=== PATIENT | male | born 1995 | race Caucasian/White ===

== ENCOUNTER 2016-10-05 16:02 | Emergency (ER) | payer OTHER ==
--- NOTE | 2016-10-05 16:42 | DIAGNOSTIC IMAGING REPORT ---
PROCEDURE: XR TOE - LEFT (fifth toe). INDICATION: TRAUMA/INJURY TECHNIQUE: Three views. COMPARISON: None. FINDINGS: There is moderate soft tissue swelling of the left fifth toe. There is a 2 mm intra-articular osseous density of the medial base of the distal phalanx, left fifth toe, which may be developmental or could represent a fracture (acute versus old). The rest the osseous structures and joint spaces are normal. 1. Moderate soft tissue swelling of the left fifth toe. 2. The 2 mm osseous density at the base of the distal phalanx, left fifth toe, which could be developmental, although might also represent a fracture (acute versus old). 3. Findings discussed with PAC. Joe.
--- NOTE | 2016-10-05 16:43 | ED NURSING NOTES ---
Clinical Report - Nurses [facility] [address] [place] [place] [address] 10/05/2016 16:02 Patient: MELYSSA PAUL TRIAGE Triage time 16:07. Acuity: LEVEL 5. Chief Complaint: INJURY TO THE LEFT FIFTH TOE. Alert. No acute distress. BETH COMA SCORE: Beth Coma Scale: 15- eyes open spontaneously (4); best verbal response- oriented x 4 (5); best motor response- obeys commands (6). --16:11 Lashae Granger R.N. 16:07 10/05/16. BP: 129/72. HR: 79. RR: 18. O2 saturation: 100% on room air. Temp: 98.3 F (oral). Pain level now: 07/19. --16:11 Lashae Granger R.N. Weight: 75.2 kg stated. Height/Length: 72 inches Per Patient. BMI: 22.5. --16:09 Lashae Granger R.N. Medications None. --16:08 Lashae Granger R.N. Medication/allergy information source: the patient. --16:11 Lashae Granger R.N. Allergies No Known Drug Allergy. --16:08 Lashae Granger R.N. History Arrived by private vehicle. Historian: patient. Unaccompanied. Primary physician (Marie). This occurred yesterday. Mechanism of injury: a single blow (stubbed it). SOCIAL HX: Former smoker (only one or two). No alcohol use or drug use. FALL RISK ASSESSMENT: Fall risk assessment completed. No fall risk identified. FUNCTIONAL ASSESSMENT: Functional assessment: no impairments noted. LEARNING NEEDS ASSESSMENT: The learning needs assessment revealed no barriers. --16:11 Lashae Granger R.N. PROBLEMS: Fractured Phalanx (Finger). Right ankle injury. Tetanus Status. Immunizations. --16:08 Lashae Granger R.N. ADDITIONAL SURGERIES: B/l ears. Right ankle. --16:08 Lashae Granger R.N. Assessment GENERAL / NEURO / PSYCH: Alert. Oriented X 4. Appears in no acute distress. Patient appears calm and cooperative. RESPIRATORY: Respirations not labored. SKIN: Skin is warm and dry. --16:11 Lashae Granger R.N. Interventions ID band on patient. To treatment room. --16:11 Lashae Granger R.N. PHYSICAL ASSESSMENT 16:17 10/05/16. Ambulatory to room. GENERAL / NEURO / PSYCH: Oriented X 4. Alert. Appears in no acute distress. EXTREMITIES: Pain with weight bearing. ( left little toe red, swollen). SKIN: Skin is warm and dry. --16:17 Lashae Granger R.N. NURSING PROGRESS NOTES 16:17 10/05/16. Call light placed in reach. Side rails up x 1. Bed placed in lowest position. Brakes of bed on. --16:17 Lashae Granger R.N. 16:57 10/05/16. Reassessment after splinting. He is calm. Overall patient status is the same- he states feels the same. GENERAL / NEURO / PSYCH: Alert. Oriented X 4. RESPIRATORY: No respiratory distress. SKIN: Skin is warm and dry. --16:57 Lashae Granger R.N. left little toe melony taped to 4th toe and ortho shoe applied by EDT. --17:00 Lashae Granger R.N. DISPOSITION / DISCHARGE Departure time: 1655. Condition at departure: improved and stable. No learning barriers present. Reviewed medication(s). He has no activity restrictions. Patient verbalized understanding. Written instructions provided in Frisian. The patient was discharged home and unaccompanied at time of discharge. He left the Emergency Department ambulatory and via private vehicle. FALL RISK ASSESSMENT: Fall risk assessment completed. No fall risk identified. --16:58 Lashae Granger R.N. 16:55 10/05/16. Pain level now: 2/10. Additional comments: VSS here under an hour. --16:58 Lashae Granger R.N. Locked/Released at 10/05/2016 17:01 by Lashae Granger R.N.
--- NOTE | 2016-10-05 16:43 | ED CLINICAL REPORT ---
Clinical Report - Physicians/Mid Levels [facility] [address] [place] [address] 10/05/2016 16:02 [id number] Time Seen: 16:17 Oct 05 2016. Arrived- By private vehicle. HISTORY OF PRESENT ILLNESS Chief Complaint: Injury to toe. The injury happened yesterday. The patient sustained a direct blow and moderate crush injury. Occurred at home. Patient is experiencing mild pain. Patient denies injury to the head. (patient struck a gait with his left toe yesterday. Patient has been having swelling and pain since then. Denies any bleeding. denies prior injury to the area. Pain worsens with movement or ambulation. Patient has been icing the area). REVIEW OF SYSTEMS The patient complains of pain on weight bearing. No skin laceration. All systems otherwise negative, except as recorded above. PAST HISTORY See nurses notes. The patient has not had a prior injury to the same area. Problems: Fractured Phalanx (Finger). Right ankle injury. Tetanus Status. Immunizations. Additional Surgeries: B/l ears. Right ankle. Medications: None. Allergies: No Known Drug Allergy. SOCIAL HISTORY Former smoker. No alcohol use. ADDITIONAL NOTES The nursing notes have been reviewed. PHYSICAL EXAM Vital Signs: 10/05/2016 16:07 BP: 129/72. HR: 79. RR: 18. O2 saturation: 100%. Temp: 98.3 F. Pain level now: 4/10. Appearance: Alert. No acute distress. Head: Head atraumatic. CVS: Normal heart rate and rhythm. Heart sounds normal. Respiratory: No respiratory distress. Breath sounds normal. Skin: Skin intact. Skin warm. Extremities: Left fifth toe: tenderness and swelling. No ankle injury. Neuro, Vascular and Tendons: Vascular status intact. Motor intact. Gait: Limping gait. Neuro: Oriented X 3. No motor deficit. LABS, X-RAYS, AND EKG Lt Toes X-ray: (Moderate soft tissue swelling of the left fifth toe. 2. The 2 mm osseous density at the base of the distal phalanx, left fifth toe, which could be developmental, although might also represent a fracture (acute versus old). 3. Findings discussed with PAC. Joe. Electronically Final signed by:Brandon Whipple MD 10/05/2016 4:37:34 PM). PROGRESS AND PROCEDURES PROCEDURES (melony tape 5th left digit). Course of Care: patient with possible distal fifth digit injury, may be new, given the amount of swelling. No signs of open fracture. No signs of injury to the nail. Patient very stable. To follow up outpatient. Splinted and postop shoe here in the emergency room. Patient is stable. Physical exam findings are improved. Symptoms better. Patient/family counseled. Disposition: Discharged. Condition: good. CLINICAL IMPRESSION Closed distal phalanx fracture of the left 5th toe. INSTRUCTIONS Apply ice. Elevate affected areas above chest level. You may walk and bear weight as tolerated. OTC Medications: Take OTC medications according to label instructions. Available over the counter. Acetaminophen (available over the counter): take according to label instructions. Motrin (available over the counter): take according to label instructions. Follow-up with: Antoni Adrian DPM, Podiatry, , [facility], [address] [place] [address], [address], [place] [address] Follow up. Call for the next available appointment. (Electronically signed by Kellen Castrejon P.A.-C 10/05/2016 17:00)
--- NOTE | 2016-10-05 16:43 | ED ORDER SUMMARY ---
..... Patient: MELYSSA PAUL OrderSheet [facility] VisitID: [id number] [place] [address] 21y, M Registration Date/Time: 10/05/2016 ORDER SHEET Weight: 75.2 kg (stated) Allergies: No Known Drug Allergy GENERAL ORDERS: Toe Left Urgent (16:14 10/05/2016 Ritu Carr) (Ack 16:19 LNations ER Tech1) (16:25 LNations ER Tech1) Adan Tape Toes (16:43 10/05/2016 Ritu Carr) (17:01 Merlyn Llamas) MEDICATION ORDERS: IV FLUIDS: ORDER SHEET NOTES: [Electronically signed by Kellen Castrejon P.A.-C (17:00 10/05/2016)] [Electronically signed by Lashae Granger R.N. (17:10/05/2016)] [Electronically locked/signed by Lashae Granger R.N. (17:10/05/2016)]
--- NOTE | 2016-10-05 16:43 | ED CLINICAL REPORT ---
Clinical Report - Physicians/Mid Levels [facility] [address] [place] [address] 10/05/2016 16:02 [id number] Time Seen: 16:17 Oct 05 2016. Arrived- By private vehicle. HISTORY OF PRESENT ILLNESS Chief Complaint: Injury to toe. The injury happened yesterday. The patient sustained a direct blow and moderate crush injury. Occurred at home. Patient is experiencing mild pain. Patient denies injury to the head. (patient struck a gait with his left toe yesterday. Patient has been having swelling and pain since then. Denies any bleeding. denies prior injury to the area. Pain worsens with movement or ambulation. Patient has been icing the area). REVIEW OF SYSTEMS The patient complains of pain on weight bearing. No skin laceration. All systems otherwise negative, except as recorded above. PAST HISTORY See nurses notes. The patient has not had a prior injury to the same area. Problems: Fractured Phalanx (Finger). Right ankle injury. Tetanus Status. Immunizations. Additional Surgeries: B/l ears. Right ankle. Medications: None. Allergies: No Known Drug Allergy. SOCIAL HISTORY Former smoker. No alcohol use. ADDITIONAL NOTES The nursing notes have been reviewed. PHYSICAL EXAM Vital Signs: 10/05/2016 16:07 BP: 129/72. HR: 79. RR: 18. O2 saturation: 100%. Temp: 98.3 F. Pain level now: 4/10. Appearance: Alert. No acute distress. Head: Head atraumatic. CVS: Normal heart rate and rhythm. Heart sounds normal. Respiratory: No respiratory distress. Breath sounds normal. Skin: Skin intact. Skin warm. Extremities: Left fifth toe: tenderness and swelling. No ankle injury. Neuro, Vascular and Tendons: Vascular status intact. Motor intact. Gait: Limping gait. Neuro: Oriented X 3. No motor deficit. LABS, X-RAYS, AND EKG Lt Toes X-ray: (Moderate soft tissue swelling of the left fifth toe. 2. The 2 mm osseous density at the base of the distal phalanx, left fifth toe, which could be developmental, although might also represent a fracture (acute versus old). 3. Findings discussed with PAC. Joe. Electronically Final signed by:Brandon Whipple MD 10/05/2016 4:37:34 PM). PROGRESS AND PROCEDURES PROCEDURES (melony tape 5th left digit). Course of Care: patient with possible distal fifth digit injury, may be new, given the amount of swelling. No signs of open fracture. No signs of injury to the nail. Patient very stable. To follow up outpatient. Splinted and postop shoe here in the emergency room. Patient is stable. Physical exam findings are improved. Symptoms better. Patient/family counseled. Disposition: Discharged. Condition: good. CLINICAL IMPRESSION Closed distal phalanx fracture of the left 5th toe. INSTRUCTIONS Apply ice. Elevate affected areas above chest level. You may walk and bear weight as tolerated. OTC Medications: Take OTC medications according to label instructions. Available over the counter. Acetaminophen (available over the counter): take according to label instructions. Motrin (available over the counter): take according to label instructions. Follow-up with: Antoni Adrian DPM, Podiatry, , [facility], [address] [place] [address], [address], [place] [address] Follow up. Call for the next available appointment. (Electronically signed by Kellen Castrejon P.A.-C 10/05/2016 17:00)
--- NOTE | 2016-10-05 16:43 | ED ORDER SUMMARY ---
..... Patient: MELYSSA PAUL OrderSheet [facility] VisitID: [id number] [place] [address] 21y, M Registration Date/Time: 10/05/2016 ORDER SHEET Weight: 75.2 kg (stated) Allergies: No Known Drug Allergy GENERAL ORDERS: Toe Left Urgent (16:14 10/05/2016 Ritu Carr) (Ack 16:19 LNations ER Tech1) (16:25 LNations ER Tech1) Adan Tape Toes (16:43 10/05/2016 Ritu Carr) (17:01 Merlyn Llamas) MEDICATION ORDERS: IV FLUIDS: ORDER SHEET NOTES: [Electronically signed by Kellen Castrejon P.A.-C (17:00 10/05/2016)] [Electronically signed by Lashae Granger R.N. (17:10/05/2016)] [Electronically locked/signed by Lsahae Granger R.N. (17:10/05/2016)]
--- NOTE | 2016-10-05 17:02 | ED DISCHARGE INSTRUCTIONS ---
Patient: MELYSSA PAUL General Instructions [facility] VisitID: [id number] [place] [address] 21y, M Registration Date/Time: 10/05/2016 Closed distal phalanx fracture of the left 5th toe. INSTRUCTIONS Apply ice. Elevate affected areas above chest level. You may walk and bear weight as tolerated. OTC Medications: Take OTC medications according to label instructions. Available over the counter. Acetaminophen (available over the counter): take according to label instructions. Motrin (available over the counter): take according to label instructions. Follow-up with: Antoni Adrian DPM, Podiatry, , [facility], [address] [place] [address], [address] [address] Follow up. Call for the next available appointment. ADDITIONAL INFORMATION Fracture:Toe [Closed] You have a fracture of your toe (broken toe). This causes local pain, swelling and bruising. This injury takes about four weeks to heal. Toe injuries are often treated by taping the injured toe to the next one ("melony taping"). This protects the injured toe and holds it in position. If the TOENAIL has been severely injured, it may fall off in 1-2 weeks. It takes up to 12 months for a new toenail to grow back. Home Care: 1) You may be given a cast shoe to wear to prevent movement in your toe. If not, you can use a sandal or any shoe that does not put pressure on the injured toe until the swelling and pain go away. If using a sandal, be careful not to strike your foot against anything, since another injury could make the fracture worse. If you were given crutches, do not put full weight on the injured foot until you can do so without pain. 2) Keep your foot elevated to reduce pain and swelling. When sleeping, place a pillow under the injured leg. When sitting, support the injured leg so it is level with your waist. This is very important during the first 48 hours. 3) Apply an ice pack (ice cubes in a plastic bag, wrapped in a towel) over the injured area for 20 minutes every 1-2 hours the first day. Continue with ice packs 3-4 times a day for the next two days, then as needed for the relief of pain and swelling. 4) If melony tape was applied and it becomes wet or dirty, change it. You may replace it with paper, plastic or cloth tape. Cloth tape and paper tapes must be kept dry. 5) You may use acetaminophen (Tylenol) or ibuprofen (Motrin, Advil) to control pain, unless another pain medicine was prescribed. [ NOTE : If you have chronic liver or kidney disease or ever had a stomach ulcer or GI bleeding, talk with your doctor before using these medicines.] 6) You may return to sports or physical education activities after 4 weeks or when you can run without pain. Follow Up With Your Doctor In One Week, Or As Advised By Our Staff, To Be Sure The Bone Is Healing Properly. [NOTE: Any X-rays taken will be reviewed by a radiologist. You will be notified of any new findings that may affect your care.] Get Prompt Medical Attention If Any Of The Following Occur: Increasing pain or swelling Toe becomes cold, blue, numb or tingly Signs of infection: fever, redness, warmth, swelling or drainage from the wound Fever of 100.4F (38C) or higher, or as directed by your healthcare provider You have been given the following additional information: Fracture, Toe [Closed] You may walk and bear weight as tolerated. (Electronically signed by Kellen Castrejon P.A.-C 10/05/2016 17:00)
--- NOTE | 2016-10-05 17:02 | ED MAR SUMMARY ---
..... Medication Administration Record [facility] [address] [place], [place] [id number] Patient: MELYSSA PAUL Visit ID: [id number] 21y, M Weight: 75.2 kg Height/Length: 72 in BMI: 22.5 ALLERGIES: No Known Drug Allergy
--- NOTE | 2016-10-05 17:02 | ED MAR SUMMARY ---
..... Medication Administration Record [facility] [address] [place], [place] [id number] Patient: MELYSSA PAUL Visit ID: [id number] 21y, M Weight: 75.2 kg Height/Length: 72 in BMI: 22.5 ALLERGIES: No Known Drug Allergy
--- NOTE | 2016-10-05 17:02 | ED MED RECONCILIATION SUMMARY ---
Patient: MELYSSA PAUL Medication Reconciliation Report [facility] VisitID: [id number] [place] [address] 21y, M Registration Date/Time: 10/05/2016 Weight: 75.2 kg Height/Length: 72 in. BMI: 22.5 ALLERGIES: No Known Drug Allergy The patient's Home Medications are listed below: NONE. The source(s) of the original Home Medication information: patient The following Medications were given to the patient in the Emergency Department: None. The following Medications were prescribed to the patient: Take OTC medications according to label instructions. Available over the counter. -- Kellen Castrejon, P.A.-C Acetaminophen (available over the counter): take according to label instructions. -- Kellen Castrejon, P.A.-C Motrin (available over the counter): take according to label instructions. -- Kellen Castrejon, P.A.-C
--- NOTE | 2016-10-05 17:02 | ED DISCHARGE INSTRUCTIONS ---
Patient: MELYSSA PAUL General Instructions [facility] VisitID: [id number] [place] [address] 21y, M Registration Date/Time: 10/05/2016 Closed distal phalanx fracture of the left 5th toe. INSTRUCTIONS Apply ice. Elevate affected areas above chest level. You may walk and bear weight as tolerated. OTC Medications: Take OTC medications according to label instructions. Available over the counter. Acetaminophen (available over the counter): take according to label instructions. Motrin (available over the counter): take according to label instructions. Follow-up with: Antoni Adrian DPM, Podiatry, , [facility], [address] [place] [address], [address] [address] Follow up. Call for the next available appointment. ADDITIONAL INFORMATION Fracture:Toe [Closed] You have a fracture of your toe (broken toe). This causes local pain, swelling and bruising. This injury takes about four weeks to heal. Toe injuries are often treated by taping the injured toe to the next one ("melony taping"). This protects the injured toe and holds it in position. If the TOENAIL has been severely injured, it may fall off in 1-2 weeks. It takes up to 12 months for a new toenail to grow back. Home Care: 1) You may be given a cast shoe to wear to prevent movement in your toe. If not, you can use a sandal or any shoe that does not put pressure on the injured toe until the swelling and pain go away. If using a sandal, be careful not to strike your foot against anything, since another injury could make the fracture worse. If you were given crutches, do not put full weight on the injured foot until you can do so without pain. 2) Keep your foot elevated to reduce pain and swelling. When sleeping, place a pillow under the injured leg. When sitting, support the injured leg so it is level with your waist. This is very important during the first 48 hours. 3) Apply an ice pack (ice cubes in a plastic bag, wrapped in a towel) over the injured area for 20 minutes every 1-2 hours the first day. Continue with ice packs 3-4 times a day for the next two days, then as needed for the relief of pain and swelling. 4) If melony tape was applied and it becomes wet or dirty, change it. You may replace it with paper, plastic or cloth tape. Cloth tape and paper tapes must be kept dry. 5) You may use acetaminophen (Tylenol) or ibuprofen (Motrin, Advil) to control pain, unless another pain medicine was prescribed. [ NOTE : If you have chronic liver or kidney disease or ever had a stomach ulcer or GI bleeding, talk with your doctor before using these medicines.] 6) You may return to sports or physical education activities after 4 weeks or when you can run without pain. Follow Up With Your Doctor In One Week, Or As Advised By Our Staff, To Be Sure The Bone Is Healing Properly. [NOTE: Any X-rays taken will be reviewed by a radiologist. You will be notified of any new findings that may affect your care.] Get Prompt Medical Attention If Any Of The Following Occur: Increasing pain or swelling Toe becomes cold, blue, numb or tingly Signs of infection: fever, redness, warmth, swelling or drainage from the wound Fever of 100.4F (38C) or higher, or as directed by your healthcare provider You have been given the following additional information: Fracture, Toe [Closed] You may walk and bear weight as tolerated. (Electronically signed by Kellen Castrejon P.A.-C 10/05/2016 17:00)
--- NOTE | 2016-10-05 17:02 | ED MED RECONCILIATION SUMMARY ---
Patient: MELYSSA PAUL Medication Reconciliation Report [facility] VisitID: [id number] [place] [address] 21y, M Registration Date/Time: 10/05/2016 Weight: 75.2 kg Height/Length: 72 in. BMI: 22.5 ALLERGIES: No Known Drug Allergy The patient's Home Medications are listed below: NONE. The source(s) of the original Home Medication information: patient The following Medications were given to the patient in the Emergency Department: None. The following Medications were prescribed to the patient: Take OTC medications according to label instructions. Available over the counter. -- Kellen Castrejon, P.A.-C Acetaminophen (available over the counter): take according to label instructions. -- Kellen Castrejon, P.A.-C Motrin (available over the counter): take according to label instructions. -- Kellen Castrejon, P.A.-C
== END 2016-10-05 16:55 | disposition home or self-care (01) ==
LOC: ED SRH 16:02
DX: S92.532A Displaced fracture of distal phalanx of left lesser toe(s), initial encounter for closed fracture (principal); W22.8XXA Striking against or struck by other objects, initial encounter; Y93.9 Activity, unspecified; Y92.009 Unspecified place in unspecified non-institutional (private) residence as the place of occurrence of the external cause; Y99.9 Unspecified external cause status; Z87.891 Personal history of nicotine dependence